=== PATIENT | male | born 1965 | race Caucasian/White ===

== ENCOUNTER 2017-12-29 13:32 | Inpatient (IN) | payer OTHER ==
[2017-12-29 14:24] VITALS: BMI 28.7
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
[2017-12-29] MEDS ORDERED: LOPERAMIDE HCL 2 MG CAPSULE PO PRN (19:12)
[2017-12-29] MEDS ORDERED: guaiFENesin/D-METHORPHAN HB 10 ML UNIT-DOSE CUPS PO PRN (19:12)
[2017-12-29] MEDS ORDERED: ACETAMINOPHEN 325 MG TABLET (FP) PO PRN (19:12)
[2017-12-29] MEDS ORDERED: chlordiazePOXIDE HCL 25 MG CAPSULE PO PRN (19:12)
[2017-12-29] MEDS ORDERED: MAG HYDROX/AL HYDROX/SIMETH 30 ML UNIT-DOSE CUP PO PRN (19:12)
[2017-12-29] MEDS ORDERED: chlordiazePOXIDE HCL 25 MG CAPSULE PO ONE (19:12)
[2017-12-29] MEDS ORDERED: NICOTINE POLACRILEX 4 MG GUM BC PRN (19:12)
[2017-12-29] MEDS ORDERED: MAGNESIUM HYDROX 2400MG/30ML ORAL SUSPENSION 30 ML CUP PO PRN (19:12)
[2017-12-29] MEDS ORDERED: MAGNESIUM CITRATE 300 ML BOTTLE PO PRN (19:12)
[2017-12-29] MEDS ORDERED: IBUPROFEN 400 MG TABLET (FP) PO PRN (19:12)
[2017-12-29] MEDS ORDERED: METHADONE HCL 10 MG TABLET (FOR DETOX USE ONLY) PO ONE ×2 (19:12→23:00)
[2017-12-29] MEDS ORDERED: P-EPHED 60MG/TRIPROLIDI 2.5MG TABLET PO PRN (19:12)
[2017-12-29] MEDS ORDERED: MENTHOL/PHENOL 1 EACH UD MM PRN (19:12)
[2017-12-29] MEDS ORDERED: MELATONIN 5 MG TABLETS PO PRN (22:00)
[2017-12-29] MEDS: chlordiazePOXIDE HCL 25 MG CAPSULE PO SCH (22:19)
[2017-12-29] MEDS: THIAMINE HCL 100 MG TABLET (FP) PO SCH (22:20)
[2017-12-30 00:07] LABS: URINE APPEARANCE CLEAR; URINE BILIRUBIN NEGATIVE (<2.0 mg/dL); URINE COLOR YELLOW; URINE GLUCOSE (UA) NEGATIVE (NEGATIVE); URINE KETONE NEGATIVE (NEGATIVE); URINE LEUK ESTERASE NEGATIVE (NEGATIVE); URINE NITRITE NEGATIVE (NEGATIVE); URINE PROTEIN NEGATIVE (NEGATIVE); URINE UROBILINOGEN NEGATIVE mg/dL (0.2-1.0)
[2017-12-30] MEDS: chlordiazePOXIDE HCL 25 MG CAPSULE PO SCH ×4 (06:30→22:33)
--- NOTE | 2017-12-30 09:52 | EKG ---
Test Reason : Blood Pressure : / mmHG Vent. Rate : 077 BPM Atrial Rate : 077 BPM P-R Int : 124 ms QRS Dur : 100 ms QT Int : 384 ms P-R-T Axes : 058 048 037 degrees QTc Int : 434 ms NORMAL SINUS RHYTHM NORMAL ECG NO PREVIOUS ECGS AVAILABLE Confirmed by DAYDAY KEANE MD ([id number]) on 12/30/2017 9:52:25 AM Referred By: Confirmed By:DAYDAY KEANE MD
[2017-12-30 09:55] LABS: HEMATOCRIT 43.9 % (35.4-49); HEMOGLOBIN 14.7 GM/dL (11.7-16.9); MCH 29.8 pg (25.7-33.7); MCHC 33.6 g/dl (32.0-35.9); MEAN CELL VOLUME 88.7 fl (80-96); MEAN PLT VOLUME 7.8 fl (7.5-11.1); PLATELET COUNT 184 K/MM3 (134-434); RBC 4.95 M/mm3 (4.00-5.60); RDW 14.2 % (11.9-15.9); WHITE BLOOD COUNT 7.2 K/mm3 (4.0-10.0)
[2017-12-30] MEDS ORDERED: METHADONE HCL 10 MG TABLET (FOR DETOX USE ONLY) PO SCH (10:00)
[2017-12-30 10:16] LABS: ALBUMIN 3.5 g/dl (3.4-5.0); ANION GAP 6 MMOL/L (8-16); BLOOD UREA NITROGEN 15 mg/dL (7-18); CALCIUM 8.7 mg/dL (8.5-10.1); CHLORIDE 109 mmol/L (98-107); CO2 29 mmol/L (21-32); GLUCOSE,RANDOM 109 mg/dL (74-106); POTASSIUM 4.5 mmol/L (3.5-5.1); SGPT/ALT 59 U/L (12-78); SODIUM 144 mmol/L (136-145)
[2017-12-30 10:19] LABS: ALK PHOS 102 U/L (45-117); BILIRUBIN,TOTAL 0.4 mg/dL (0.2-1.0); CREATININE 0.7 mg/dL (0.7-1.3); SGOT/AST 35 U/L (15-37); TOT PROT 6.7 g/dl (6.4-8.2)
[2017-12-30] MEDS: PRENATAL VITAMINS W/ FOLIC ACID TABLET (FP) PO SCH (10:33)
[2017-12-30] MEDS: NICOTINE 21 MG/24 HOURS TOPICAL PATCH TD SCH (10:34)
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
--- NOTE | 2017-12-30 17:43 | PN ---
BHS Progress Note (SOAP) Objective: x x Vital Signs 12/30/17 12/30/17 13:18 17:22 Temperature 98.6 F 97.1 F L Pulse Rate 89 60 Respiratory 20 16 Rate Blood Pressure 152/80 137/75 12/30/17 17:42
[2017-12-30] MEDS: THIAMINE HCL 100 MG TABLET (FP) PO SCH (22:33)
[2017-12-31] MEDS: chlordiazePOXIDE HCL 25 MG CAPSULE PO SCH ×2 (05:11→10:17)
[2017-12-31] MEDS ORDERED: METHADONE HCL 5 MG TABLET (FOR DETOX USE ONLY) PO SCH (10:00)
[2017-12-31] MEDS: NICOTINE 21 MG/24 HOURS TOPICAL PATCH TD SCH (10:17)
[2017-12-31] MEDS: PRENATAL VITAMINS W/ FOLIC ACID TABLET (FP) PO SCH (10:17)
--- NOTE | 2017-12-31 14:38 | PN ---
S CIWA - CIWA Score Nausea/Vomitin Muscle Tremors: 2 Anxiety: 5 Agitation: 5 Paroxysmal Sweats: 3 Orientation: 0-Oriented Tacttile Disturbances: 0-None Auditory Disturbances: 0-None Visual Disturbances: 0-None Headache: 0-None Present CIWA-Ar Total Score: 17 BHS COWS - Scale Resting Pulse: 0= [place] 80 or Below Sweatin=Flushed/Facial Moisture Restless Observation: 3= Extraneous Movement Pupil Size: 0= Normal to Room Light Bone or Joint Aches: 1= Mild Discomfort Runny Nose/ Eye Tearin= Nasal Congestion GI Upset > 30mins: 1= Stomach Cramp Tremor Observation of Outstretched Hands: 2= Slight Tremor Visible Yawning Observation: 1= 1-2x During Session Anxiety or Irritability: 4=Extreme Anxiety Goose Flesh Skin: 0=Smooth Skin COWS Score: 15 [facility] Progress Note (SOAP) Subjective: Not offering any complaint Objective: 12/31/17 14:36 Highly irritable Anxious No resp nor acute distress Vital Signs Temperature 98.3 F 12/31/17 09:34 Pulse Rate 62 12/31/17 09:34 Respiratory Rate 18 12/31/17 09:34 Blood Pressure 153/83 12/31/17 09:34 O2 Sat by Pulse Oximetry (%) Laboratory Last Values WBC 7.2 K/mm3 (4.0-10.0) 12/30/17 07:00 RBC 4.95 M/mm3 (4.00-5.60) 12/30/17 07:00 Hgb 14.7 GM/dL (11.7-16.9) 12/30/17 07:00 Hct 43.9 % (35.4-49) 12/30/17 07:00 MCV 88.7 fl (80-96) 12/30/17 07:00 MCH 29.8 pg (25.7-33.7) 12/30/17 07:00 MCHC 33.6 g/dl (32.0-35.9) 12/30/17 07:00 RDW 14.2 % (11.9-15.9) 12/30/17 07:00 Plt Count 184 K/MM3 (134-434) 12/30/17 07:00 MPV 7.8 fl (7.5-11.1) 12/30/17 07:00 Sodium 144 mmol/L (136-145) 12/30/17 07:00 Potassium 4.5 mmol/L (3.5-5.1) 12/30/17 07:00 Chloride 109 mmol/L (98-107) H 12/30/17 07:00 Carbon Dioxide 29 mmol/L (21-32) 12/30/17 07:00 Anion Gap 6 MMOL/L (8-16) L 12/30/17 07:00 BUN 15 mg/dL (7-18) 12/30/17 07:00 Creatinine 0.7 mg/dL (0.7-1.3) 12/30/17 07:00 Creat Clearance w eGFR > 60 (>60) 12/30/17 07:00 Random Glucose 109 mg/dL (74-106) H 12/30/17 07:00 Calcium 8.7 mg/dL (8.5-10.1) 12/30/17 07:00 Total Bilirubin 0.4 mg/dL (0.2-1.0) 12/30/17 07:00 AST 35 U/L (15-37) 12/30/17 07:00 ALT 59 U/L (12-78) 12/30/17 07:00 Alkaline Phosphatase 102 U/L (45-117) 12/30/17 07:00 Total Protein 6.7 g/dl (6.4-8.2) 12/30/17 07:00 Albumin 3.5 g/dl (3.4-5.0) 12/30/17 07:00 Urine Color Yellow 12/29/17 23:06 Urine Appearance Clear 12/29/17 23:06 Urine pH 5.0 (5.0-8.0) 12/29/17 23:06 Ur Specific [place] 1.030 (1.001-1.035) 12/29/17 23:06 Urine Protein Negative (NEGATIVE) 12/29/17 23:06 Urine Glucose (UA) Negative (NEGATIVE) 12/29/17 23:06 Urine Ketones Negative (NEGATIVE) 12/29/17 23:06 Urine Blood Negative (NEGATIVE) 12/29/17 23:06 Urine Nitrite Negative (NEGATIVE) 12/29/17 23:06 Urine Bilirubin Negative (<2.0 mg/dL) 12/29/17 23:06 Urine Urobilinogen Negative mg/dL (0.2-1.0) 12/29/17 23:06 Ur Leukocyte Esterase Negative (NEGATIVE) 12/29/17 23:06 RPR Titer Nonreactive (NONREACTIVE) 12/30/17 07:00 Assessment: 12/31/17 14:37 withdrawal sx Plan: continue detox Increase hydration
--- NOTE | 2017-12-31 17:15 | DS ---
[facility] Detox Discharge Summary Admission Date: 12/29/17 Discharge Date: 12/31/17 - History Present History: Alcohol Dependence, Opioid Dependence - Physical Exam Results Vital Signs: Vital Signs Temperature 98.3 F 12/31/17 09:34 Pulse Rate 62 12/31/17 09:34 Respiratory Rate 18 12/31/17 09:34 Blood Pressure 153/83 12/31/17 09:34 O2 Sat by Pulse Oximetry (%) Pertinent Admission Physical Exam Findings: Laboratory Last Values WBC 7.2 K/mm3 (4.0-10.0) 12/30/17 07:00 RBC 4.95 M/mm3 (4.00-5.60) 12/30/17 07:00 Hgb 14.7 GM/dL (11.7-16.9) 12/30/17 07:00 Hct 43.9 % (35.4-49) 12/30/17 07:00 MCV 88.7 fl (80-96) 12/30/17 07:00 MCH 29.8 pg (25.7-33.7) 12/30/17 07:00 MCHC 33.6 g/dl (32.0-35.9) 12/30/17 07:00 RDW 14.2 % (11.9-15.9) 12/30/17 07:00 Plt Count 184 K/MM3 (134-434) 12/30/17 07:00 MPV 7.8 fl (7.5-11.1) 12/30/17 07:00 Sodium 144 mmol/L (136-145) 12/30/17 07:00 Potassium 4.5 mmol/L (3.5-5.1) 12/30/17 07:00 Chloride 109 mmol/L (98-107) H 12/30/17 07:00 Carbon Dioxide 29 mmol/L (21-32) 12/30/17 07:00 Anion Gap 6 MMOL/L (8-16) L 12/30/17 07:00 BUN 15 mg/dL (7-18) 12/30/17 07:00 Creatinine 0.7 mg/dL (0.7-1.3) 12/30/17 07:00 Creat Clearance w eGFR > 60 (>60) 12/30/17 07:00 Random Glucose 109 mg/dL (74-106) H 12/30/17 07:00 Calcium 8.7 mg/dL (8.5-10.1) 12/30/17 07:00 Total Bilirubin 0.4 mg/dL (0.2-1.0) 12/30/17 07:00 AST 35 U/L (15-37) 12/30/17 07:00 ALT 59 U/L (12-78) 12/30/17 07:00 Alkaline Phosphatase 102 U/L (45-117) 12/30/17 07:00 Total Protein 6.7 g/dl (6.4-8.2) 12/30/17 07:00 Albumin 3.5 g/dl (3.4-5.0) 12/30/17 07:00 Urine Color Yellow 12/29/17 23:06 Urine Appearance Clear 12/29/17 23:06 Urine pH 5.0 (5.0-8.0) 12/29/17 23:06 Ur Specific [place] 1.030 (1.001-1.035) 12/29/17 23:06 Urine Protein Negative (NEGATIVE) 12/29/17 23:06 Urine Glucose (UA) Negative (NEGATIVE) 12/29/17 23:06 Urine Ketones Negative (NEGATIVE) 12/29/17 23:06 Urine Blood Negative (NEGATIVE) 12/29/17 23:06 Urine Nitrite Negative (NEGATIVE) 12/29/17 23:06 Urine Bilirubin Negative (<2.0 mg/dL) 12/29/17 23:06 Urine Urobilinogen Negative mg/dL (0.2-1.0) 12/29/17 23:06 Ur Leukocyte Esterase Negative (NEGATIVE) 12/29/17 23:06 RPR Titer Nonreactive (NONREACTIVE) 12/30/17 07:00 labs noted - Medication Discharge Medications: Ambulatory Orders NK [No Known Home Medication] 11/18/15 - Diagnosis (1) Alcohol dependence with uncomplicated withdrawal Current Visit: Yes Status: Chronic (2) Opioid dependence with withdrawal Current Visit: Yes Status: Chronic (3) Nicotine dependence Current Visit: Yes Status: Chronic Qualifiers: Nicotine product type: cigarettes Substance use status: uncomplicated Qualified Code(s): F17.210 - Nicotine dependence, cigarettes, uncomplicated (4) COPD (chronic obstructive pulmonary disease) Current Visit: Yes Status: Chronic Qualifiers: COPD type: emphysema Emphysema type: unilateral Qualified Code(s): J43.0 - Unilateral pulmonary emphysema [MacLeod's syndrome] - AMA Did Patient Leave Against Medical Advice: Yes (Pt. stated he wants to leave to get high. )
--- NOTE | 2017-12-31 17:17 | PN ---
S Progress Note Note: Met with the pt. on the unit. He stated he wanted to go home to get high. Explained the risks of not completing treatment and the risks of overdosing; pt. verbalized understanding and stated he is still leaving. He stated he does not need medication refills.
[2017-12-31 17:35] VITALS: BP 139/88; PULSE 92; TEMP 99.5
[2017-12-31] MEDS ORDERED: chlordiazePOXIDE 5 MG CAPSULE PO SCH (23:00)
[2018-01-01] MEDS ORDERED: chlordiazePOXIDE HCL 10 MG CAPSULE PO SCH (23:00)
[2018-01-02] MEDS ORDERED: METHADONE HCL 10 MG TABLET (FOR DETOX USE ONLY) PO SCH (10:00)
[2018-01-03] MEDS ORDERED: METHADONE HCL 5 MG TABLET (FOR DETOX USE ONLY) PO SCH (06:00)
== END 2017-12-31 17:35 | disposition left against medical advice (07) | DRG 770 ==
LOC: YASAS 13:32 → Y6N 17:51
PROC: HZ2ZZZZ Detoxification Services for Substance Abuse Treatment (ICD-10-PCS; principal; 2017-12-29)
DX: F11.23 Opioid dependence with withdrawal (principal); F10.230 Alcohol dependence with withdrawal, uncomplicated; F14.20 Cocaine dependence, uncomplicated; F12.20 Cannabis dependence, uncomplicated; F17.213 Nicotine dependence, cigarettes, with withdrawal; F19.24 Other psychoactive substance dependence with psychoactive substance-induced mood disorder; B18.2 Chronic viral hepatitis C; J43.0 Unilateral pulmonary emphysema [MacLeod's syndrome]; I25.2 Old myocardial infarction; I10 Essential (primary) hypertension; R26.89 Other abnormalities of gait and mobility; Z99.89 Dependence on other enabling machines and devices; Z86.69 Personal history of other diseases of the nervous system and sense organs; Z87.820 Personal history of traumatic brain injury; Z91.5 Personal history of self-harm
CPT/HCPCS: 36415; 80053; 81003; 85027; 86593; 93005; 93010